=== PATIENT | male | born 1970 | race Caucasian/White ===

== ENCOUNTER 2023-05-11 11:00 | Emergency (ER) | payer OTHER ==
[2023-05-11] MEDS ORDERED: Acetaminophen/oxyCODONE 325-5 MG Tab PO ONE (12:42)
[2023-05-11 12:48] LABS: BASOPHILS PERCENT AUTO 0.1 % (0.0-1.5); EOSINOPHILS PERCENT AUTO 0.1 % (0.0-7.0); HEMATOCRIT 35.7 % (38.0-50.0); HEMOGLOBIN 12.2 g/dL (13.0-17.0); LYMPHOCYTES ABSOLUTE AUTO 0.8 K/uL (0.6-2.4); LYMPHOCYTES PERCENT AUTO 6.7 % (16.0-40.0); MEAN CORPUSCULAR HEMOGLOBIN 30.3 pg (27.0-32.0); MEAN CORPUSCULAR HGB CONC 34.2 g/dL (31.0-37.0); MEAN CORPUSCULAR VOLUME 88.6 fL (80.0-98.0); MONOCYTES ABSOLUTE AUTO 0.7 K/uL (0.0-0.8); MONOCYTES PERCENT AUTO 5.4 % (0.0-15.0); NEUTROPHILS ABSOLUTE AUTO 10.6 K/uL (1.4-5.7); NEUTROPHILS PERCENT AUTO 87.7 % (48.0-80.0); NRBC ABSOLUTE 0 K/uL; PLATELET COUNT,PLT 201 K/uL (150-400); RED BLOOD CELL COUNT 4.03 M/uL (4.50-5.90); WHITE BLOOD CELL COUNT,WBC 12.05 K/uL (4.0-11.0)
[2023-05-11 13:00] LABS: INR 1.09 (0.86-1.11)
[2023-05-11 13:13] LABS: A/G RATIO 0.9 (0.9-1.6); ALBUMIN 3.6 g/dL (3.4-5.0); CALCIUM 8.3 mg/dL (8.5-10.1); CARBON DIOXIDE,CO2 23.9 mmol/L (21.0-32.0); EST CRCL DRUG DOSING (CG) 36.18 mL/min; POTASSIUM,K 4.4 mmol/L (3.5-5.1); PROTEIN TOTAL,TP 7.6 g/dL (6.4-8.2)
[2023-05-11] MEDS ORDERED: Lidocaine 2% 11 ML Jelly Filled Syringe MUCMEM ONE (13:15)
[2023-05-11] MEDS ORDERED: Sodium Chloride 0.9% 1,000 ML IV ONE (15:05)
[2023-05-11 17:11] LABS: CALCIUM 7.8 mg/dL (8.5-10.1); CARBON DIOXIDE,CO2 24.1 mmol/L (21.0-32.0); CREATININE 1.7 mg/dL (0.8-1.3); EST CRCL DRUG DOSING (CG) 42.56 mL/min; POTASSIUM,K 4.5 mmol/L (3.5-5.1)
== END 2023-05-11 17:42 | disposition home or self-care (01) ==
LOC: MW.ED 11:00
DX: S82.141A Displaced bicondylar fracture of right tibia, initial encounter for closed fracture (principal); N17.9 Acute kidney failure, unspecified; I10 Essential (primary) hypertension; V23.49XA Other motorcycle driver injured in collision with car, pick-up truck or van in traffic accident, initial encounter; Y92.410 Unspecified street and highway as the place of occurrence of the external cause
CPT/HCPCS: 36415; 80048; 80053; 82550; 85025; 85610; 96360; 99283; A9270; J7030

== ENCOUNTER 2023-05-16 11:27 | Emergency (ER) | payer OTHER ==
[2023-05-16] MEDS ORDERED: Sodium Chloride 0.9% 1,000 ML IV ONE (12:31)
[2023-05-16 13:35] LABS: BASOPHILS PERCENT AUTO 0.3 % (0.0-1.5); EOSINOPHILS ABSOLUTE AUTO 0.3 K/uL (0.0-0.7); EOSINOPHILS PERCENT AUTO 4.2 % (0.0-7.0); HEMATOCRIT 34.9 % (38.0-50.0); HEMOGLOBIN 11.8 g/dL (13.0-17.0); LYMPHOCYTES ABSOLUTE AUTO 1.5 K/uL (0.6-2.4); LYMPHOCYTES PERCENT AUTO 23.4 % (16.0-40.0); MEAN CORPUSCULAR HEMOGLOBIN 30.4 pg (27.0-32.0); MEAN CORPUSCULAR HGB CONC 33.8 g/dL (31.0-37.0); MEAN CORPUSCULAR VOLUME 89.9 fL (80.0-98.0); MONOCYTES ABSOLUTE AUTO 0.7 K/uL (0.0-0.8); NEUTROPHILS PERCENT AUTO 62.1 % (48.0-80.0); PLATELET COUNT,PLT 338 K/uL (150-400); RED BLOOD CELL COUNT 3.88 M/uL (4.50-5.90); WHITE BLOOD CELL COUNT,WBC 6.49 K/uL (4.0-11.0)
[2023-05-16 14:00] LABS: A/G RATIO 0.7 (0.9-1.6); ALBUMIN 3.2 g/dL (3.4-5.0); BILIRUBIN TOTAL 0.6 mg/dL (0.2-1.0); CALCIUM 8.9 mg/dL (8.5-10.1); CARBON DIOXIDE,CO2 24.5 mmol/L (21.0-32.0); CREATININE 1.4 mg/dL (0.8-1.3); EST CRCL DRUG DOSING (CG) 51.68 mL/min; POTASSIUM,K 4.2 mmol/L (3.5-5.1); PROTEIN TOTAL,TP 7.9 g/dL (6.4-8.2)
[2023-05-16 14:03] LABS: LACTIC ACID 1.3 mmol/L (0.4-2.0)
[2023-05-16] MEDS ORDERED: Iopamidol 755 MG/ML 500 ML Multipack Bottle IVPUSH STA (14:47)
[2023-05-16] MEDS ORDERED: Piperacillin/Tazobactam 3.375 GM in Sodium Chloride 0.9% 100 ML IV ONE (15:32)
[2023-05-16] MEDS ORDERED: Clindamycin Phosphate in D5W 600 MG in Premix Bag 1 BAG IV ONE ×2 (15:32)
[2023-05-16] MEDS ORDERED: Morphine 4 MG/ML Syringe IVPUSH ONE (15:43)
[2023-05-16] MEDS ORDERED: VANCOmycin 1.25 GM/250 ML 1.25 GM in Premix Bag 1 BAG IV ONE (16:00)
== END 2023-05-16 18:11 ==
LOC: MW.ED 11:27
DX: N49.3 Fournier gangrene (principal); I10 Essential (primary) hypertension
CPT/HCPCS: 36415; 72193; 80053; 83605; 85025; 87040; 96361; 96365; 96367; 96368; 96375; 99285; J2270; J2543; J3370; J3490; J7030; Q9967; 99284

== ENCOUNTER 2023-05-20 09:24 | Emergency (ER) | payer SELFPAY ==
[2023-05-20] MEDS ORDERED: Acetaminophen/HYDROcodone 325-5 MG Tab PO ONE (10:05)
[2023-05-20] MEDS ORDERED: Ondansetron 4 MG Tab.DIS PO ONE (10:05)
== END 2023-05-20 12:16 | disposition home or self-care (01) ==
LOC: MW.ED 09:24
DX: Z51.89 Encounter for other specified aftercare (principal); I10 Essential (primary) hypertension; Z88.1 Allergy status to other antibiotic agents
CPT/HCPCS: 99282; A9270

== ENCOUNTER 2023-05-21 09:47 | Emergency (ER) | payer SELFPAY | END 2023-05-21 10:28 | disposition left against medical advice (07) | LOC: MW.ED 09:47 | DX: Z53.21 Procedure and treatment not carried out due to patient leaving prior to being seen by health care provider (principal) ==

== ENCOUNTER 2023-05-21 17:30 | Emergency (ER) | payer SELFPAY ==
[2023-05-21] MEDS ORDERED: Ketorolac 30 MG/ML SDV IM ONE (17:31)
== END 2023-05-21 18:15 | disposition home or self-care (01) ==
LOC: MW.ED 17:30
DX: Z48.00 Encounter for change or removal of nonsurgical wound dressing (principal); I10 Essential (primary) hypertension; Z88.0 Allergy status to penicillin
CPT/HCPCS: 96372; 99283; J1885; 99282

== ENCOUNTER 2023-05-22 21:05 | Emergency (ER) | payer SELFPAY | END 2023-05-22 23:05 | disposition left against medical advice (07) | LOC: MW.ED 21:05 | DX: Z53.21 Procedure and treatment not carried out due to patient leaving prior to being seen by health care provider (principal) ==

== ENCOUNTER 2023-05-24 10:59 | Emergency (ER) | payer SELFPAY | END 2023-05-24 11:42 | disposition left against medical advice (07) | LOC: MW.ED 10:59 | DX: Z48.00 Encounter for change or removal of nonsurgical wound dressing (principal) | CPT/HCPCS: 99282 ==

== ENCOUNTER 2023-05-25 12:54 | Emergency (ER) | payer SELFPAY | END 2023-05-25 15:16 | disposition home or self-care (01) | LOC: MW.ED 12:54 | DX: Z48.00 Encounter for change or removal of nonsurgical wound dressing (principal); Z76.0 Encounter for issue of repeat prescription; I10 Essential (primary) hypertension; Z88.1 Allergy status to other antibiotic agents | CPT/HCPCS: 99282; 99283 ==

== ENCOUNTER 2023-05-26 14:09 | Emergency (ER) | payer SELFPAY ==
[2023-05-26] MEDS ORDERED: diphenhydrAMINE 50 MG/ML SDV IM ONE (15:21)
[2023-05-26] MEDS ORDERED: methylPREDNISolone Sodium Succinate 125 MG/2 ML SDV IM ONE (15:21)
== END 2023-05-26 16:39 | disposition home or self-care (01) ==
LOC: MW.ED 14:09
DX: L50.9 Urticaria, unspecified (principal); I10 Essential (primary) hypertension; Z88.1 Allergy status to other antibiotic agents
CPT/HCPCS: 96372; 99282; J1200; J2930

== ENCOUNTER 2023-05-27 08:45 | Emergency (ER) | payer SELFPAY | END 2023-05-27 09:10 | disposition left against medical advice (07) | LOC: MW.ED 08:45 | DX: Z53.21 Procedure and treatment not carried out due to patient leaving prior to being seen by health care provider (principal) ==